=== PATIENT | female | born 1975 | race Caucasian/White ===

== ENCOUNTER 2017-05-06 21:28 | Emergency (ER) | payer BC ==
[~2017-05-06] VITALS: Ht 157.5 cm; Wt 51.0 kg
[~2017-05-06 21:28] MED LIST: ATARAX,VISTARIL25 MG PO; DEPO ESTRADIO5 MG/ML IM; HYDROXINE PO
[2017-05-07] MEDS ORDERED: BENADRYL50 MG PO (02:30)
[2017-05-07] MEDS ORDERED: PEPCID20 MG PO (02:30)
[2017-05-07 02:39] VITALS: BP 93/69
== END 2017-05-07 02:39 | disposition home or self-care (01) ==
LOC: EME 21:28
DX: L50.0 Allergic urticaria (principal); T37.0X5A Adverse effect of sulfonamides, initial encounter
CPT/HCPCS: 99281; 99284; J1100; J1200; J7030; S0028